=== PATIENT | male | born 1945 | race Caucasian/White ===

== ENCOUNTER 2024-04-05 08:48 | Outpatient (AMB) | payer MEDICARE, OTHER, SELFPAY ==
--- NOTE | 2024-04-05 09:00 | A.SPINEOV_ITS ---
Intake Visit Reasons: lower back pain/spinal stenosis Intake Note: Mr. Henderson is here today c/o low back pain. 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 He saw our article in the [facility] and came in to see us today for 2nd opinion. His story starts about 5 months ago when he was bending forward to get a small item on the floor and felt an acute pain in his back. He was ultimately diagnosed with a L1 compression fracture , underwent a kyphoplasty by at [facility] and subsequently had no improvement in symptoms. Postoperative MRIs showed good position of the cement inside the vertebral body with no changes on flexion or extension. He was sent for facet blocks and around physical therapy. These things did not help at all. He takes Tylenol throughout the day to try to help with the pain. He can not take Motrin because of Welch's esophagus. He has been continuing to have pain in his low back which goes down into his hips in his groin. He does not have any pain tingling or numbness radiating down into his legs. He is frustrated with his quality of life in his inability to continue to walk stand or do activities. He came to see us on his own to see if there is any way we can help him. PMH: History of hypertension, hypothyroidism, high cholesterol, diverticulosis, Welch's esophagus basal cell skin cancer, erectile dysfunction, carpal tunnel syndrome, depression, anxiety, macular degeneration, fracture of the distal radius with ORIF, abnormal stress test Social hx: He does not smoke, drink use any recreational drugs Medications: Colace, metoprolol, Valium, trazodone, pravastatin, Linzess, furosemide, levothyroxine, Protonix, psyllium, gabapentin, lisinopril, lactulose, Viagra, Tylenol, Ocuvite. Allergies: None Physical exam: He is awake alert oriented no acute distress, very slow to stand up because he is in pain, he has tenderness over his lower lumbar region. He has limited strength in his right hip flexor secondary to pain with movement that goes up into his back. ERUM testing also elicits quite a bit of pain. Reflexes are normal. No clonus. Sensation is normal. Imaging review: There is a lumbar MRI from November at [place] showing the L1 compression fracture, other than that there some moderate degenerative disc disease, some heterogenous bone signal throughout the whole lumbar spine. No significant central canal stenosis, no misalignment. Postoperative x-ray shows good placement of the cement in the L1 vertebral body. Impression: 78-year-old male who developed a compression fracture at L1 from a minor flexion movement 6 months ago when he was at his house attempting to get something off the floor, underwent a kyphoplasty without resolution of the back pain. He has been through conservative management postoperatively including Tylenol [id number] medication trials, gabapentin, facet blocks and therapy. Despite this he continues to elena with daily if not almost constant back pain aggravated with activities. He has some limited range of motion of his right hip with positive ERUM testing which I think is probably some type of arthritis in the hip joint itself. Other than that his exam is otherwise normal. His preoperative MRI just show some [id number] arthritis in his lumbar spine outside of the fracture which has already been treated. Postoperative x-rays show good placement of the cement. I do not see any new changes in the x-ray however, obviously this can be limiting because it does not have the sensitivity in the image quality of an MRI. I am going to order a pos toperative MRI just as a precaution to exclude there were not missing something as this is very unusual to see this much back pain continuing after kyphoplasty. Usually they have very high success rates and the affect his almost instantaneous. What is also unusual is the nature in which he fractured his spine. This is not uncommon in females as they are postmenopausal and can often fracture of the back with minor movements, but this is somewhat unusual to see an a male. I wonder if he does not have some kind of metabolic issue. These can also be seen with malignancy. I will call him once the MRI is completed. Thank you for allowing us to care for your patient. The total time spent with this visit with this patient was 45 minutes reviewing history, physical exam, lumbar imaging review, and implementation of treatment plan or further diagnostic testing Saravanan Astorga MD,PhD [facility] Orders: Orders MR lumbar spine wo con Today S32.010A - Wedge compression fracture of first lumbar vertebra, initial encounter for closed fracture Coding Level of Care Code New Pt Level 4 (41435) Diagnoses Lumbar compression fracture S32.000A
== END 2024-04-05 09:53 | disposition home or self-care (01) ==
PROVIDERS: PCP Physician Assistant Medical; Visit Provider Physician Assistant
DX: S32.000A Wedge compression fracture of unspecified lumbar vertebra, initial encounter for closed fracture (principal)
CPT/HCPCS: 99204

== ENCOUNTER → 2024-04-05 08:48 | Outpatient (BNVA) | payer MEDICARE, OTHER, SELFPAY | PROVIDERS: PCP Physician Assistant Medical; Visit Provider Physician Assistant | DX: S32.000A Wedge compression fracture of unspecified lumbar vertebra, initial encounter for closed fracture (principal); X58.XXXA Exposure to other specified factors, initial encounter; Y93.9 Activity, unspecified; Y92.9 Unspecified place or not applicable; Y99.9 Unspecified external cause status | CPT/HCPCS: 99202 ==

== ENCOUNTER → 2024-04-23 07:42 | Outpatient (BNV) | payer MEDICARE, OTHER, SELFPAY | PROVIDERS: PCP Physician Assistant Medical; Visit Provider Radiology Diagnostic Radiology | DX: S32.010A Wedge compression fracture of first lumbar vertebra, initial encounter for closed fracture (principal) | CPT/HCPCS: 72148 ==

== ENCOUNTER 2024-04-23 07:56 | Outpatient (REF) | payer MEDICARE, OTHER, SELFPAY | END 2024-04-23 07:57 | disposition home or self-care (01) | LOC: HO.MRI 07:56 | PROVIDERS: PCP Physician Assistant Medical; Visit Provider Physician Assistant | DX: S32.010A Wedge compression fracture of first lumbar vertebra, initial encounter for closed fracture (principal) | CPT/HCPCS: 72148 ==

== ENCOUNTER 2024-05-13 07:49 | Outpatient (REF) | payer MEDICARE, OTHER, SELFPAY | END 2024-05-13 07:50 | disposition home or self-care (01) | LOC: HO.CT 07:49 | PROVIDERS: PCP Physician Assistant Medical; Visit Provider Physician Assistant | DX: S32.000A Wedge compression fracture of unspecified lumbar vertebra, initial encounter for closed fracture (principal) | CPT/HCPCS: 72131 ==

== ENCOUNTER → 2024-05-13 07:51 | Outpatient (BNV) | payer MEDICARE, OTHER, SELFPAY | PROVIDERS: PCP Physician Assistant Medical; Visit Provider Radiology Diagnostic Radiology | DX: S32.000A Wedge compression fracture of unspecified lumbar vertebra, initial encounter for closed fracture (principal) | CPT/HCPCS: 72131 ==

== ENCOUNTER 2025-05-16 10:26 | Outpatient (AMB) | payer MEDICARE, OTHER, SELFPAY ==
--- NOTE | 2025-05-16 10:31 | A.PHYSOV_ITS ---
Vital Signs 05/16/25 10:36 Height 5 ft 10 in Weight 220 lb BMI 31.6 Intake Visit Reasons: back & neck pain Intake Note: Patient is a 79 year old male here for back and neck pain. 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 He has persistent low back pain, which also involves his leg and knee. He underwent back surgery on Barbara of the previous year. An MRI of his lumbar spine from February 14 showed that prior severe stenosis was resolved, with remaining moderate stenosis. He has tried physical therapy which provided some relief, as well as back injections which did not seem to work. The patient also reports central neck pain, pain in both shoulders, and some numbness in his feet. He denies any arm tingling. For pain management, he takes gabapentin and has some oxycodone for severe pain days. He is unable to take anti-inflammatory medications. His activity is limited; he attempts short walks but experiences pain if he walks too far, and he reports a decreased desire to go out and engage in activities. Patient is requesting MRI of the cervical spine for further treatment options. Pain Description - Location: The patient reports pain in his neck and low back. - Radiation: The back pain radiates to his leg and knee. - Associated Symptoms: He reports pain in both shoulders and numbness in his feet. - Exacerbating Factors: Walking for too long exacerbates his pain. - Interference with Function: The pain has led to a decrease in his overall activity level and a reduced desire to go out. Results - Lumbar Spine MRI (XX): Showed moderate spinal stenosis; resolution of previously noted severe stenosis. - X-ray of lumbar spine (DecemberXX): Mentioned. [facility] Medical History (Updated 05/16/25 @ 16:59 by CARMITA Manzo) Inguinal hernia Macular degeneration Hx of skin cancer, basal cell Diverticulosis of colon (without mention of hemorrhage) Burning tongue syndrome Surgical History History of colonoscopy History of cataract surgery H/O esophagogastroduodenoscopy History of carpal tunnel surgery Family History (Updated 08/29/22 @ 13:24 by Shasta Jameson RN) Mother Thyroid disorder Sister Thyroid disorder Brother High cholesterol Colon polyps Social History Alcohol intake: current Patient Tobacco Use Status: Former Tobacco user Cigarette Packs Per Day: 1 Years Smoked: 3 e-Cigarette/Vaping Use: Never Used Use of substances other than those prescribed or required for medical reasons: Yes Substance Use Type: Marijuana Review of Systems Narrative Review of Systems - Musculoskeletal: Reports neck pain, low back pain, bilateral shoulder pain, and pain in his leg and knee. - Neurological: Reports numbness in his feet. - Denies arm tingling. - General: Reports decreased activity level. Physical Exam Exam Exam: Physical Exam Cervical Spine: Examination of the cervical spine, there is no visible swelling or deformity. He is tender to bilateral upper trapezius. He has limited range of motion of the cervical spine at end range. Special Tests: Axial Compression test: Negative Spurlings test: Negative Lhermitte's sign is Negative Upper Extremities: Full range of motion bilateral upper extremities. Equal automatic transmission mechanic strength bilaterally. Neuro: Sensation: Intact to upper extremities bilateral to light touch Strength C5 (Elbow Flexion): 5/5 on the left and 5/5 on the right. C6 (Elbow Ext): 5/5 on the left and 5/5 on the right. C7 (Elbow Ext): 5/5 on the left and 5/5 on the right. C8 (Finger Flex): 5/5 on the left and 5/5 on the right. T1 (Finger Abd/Add): 5/5 on the left and 5/5 on the right. DTR: C5 (Biceps): Left 2 Right 2 C6 (Brachioradialis): Left 2 Right 2 C7 (Triceps): Left 2 Right 2 Westfall sign: Negative No pathologic clonus. No involuntary movement. Vital Signs: BMI result Body Mass Index 31.6 Assessment & Plan Assessment & Plan (1) Low back pain: Code(s): M54.50 - Low back pain, unspecified Category: Medical Qualifiers: Chronicity: chronic Back pain laterality: midline Sciatica presence: without sciatica Qualified Code(s): M54.50 - Low back pain, unspecified; G89.29 - Other chronic pain (2) Cervicalgia: Code(s): M54.2 - Cervicalgia Category: Medical Plan Pain Management The patient will continue his current pain medication regimen, including gabapentin and oxycodone for severe pain. Use of Tylenol was recommended, and the patient was advised against using anti-inflammatory medications. He was counseled to perform short, frequent walks instead of longer walks to manage pain during exercise. The patient was reassured to call if he requires assistance with pain medication. Plan Patient was informed and verbally consented to the use of an ambient scribe for clinic note documentation during this visit. 1. Neck Pain The patient's neck pain is suspected to be due to arthritis. An MRI of the cervical spine will be ordered to better visualize the underlying structures before considering further interventions. The patient will have the MRI performed at [facility]. Based on the MRI results, targeted injections for arthritis may be considered. Follow-up will occur after the MRI to discuss the results. 2. 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 The severe stenosis component was addressed with a prior surgery. It was explained that there are not many interventions for moderate stenosis, and prior back injections were ineffective. Management will focus on conservative measures, including pain medication and activity modification. Discussion Notes I discussed the patient's ongoing neck and low back pain. I explained that his r ecent lumbar MRI showed that his prior surgery had resolved the severe stenosis, leaving him with moderate stenosis for which there are limited treatment options. Regarding his neck pain, I conveyed my suspicion that it stems from arthritis and recommended a cervical spine MRI to get a definitive diagnosis before considering treatments like facet injections. The patient agreed to the MRI, which will be scheduled at [facility] for his comfort. We reviewed his pain regimen, including Tylenol, gabapentin, and the appropriate use of his breakthrough pain medication, noting he cannot take anti-inflammatories. I encouraged him to engage in short walks for exercise and to call should his pain become unmanageable. We will follow up by phone or in person to review the MRI results. Patient Instructions - We are ordering an MRI of your neck. - Our office will call you in the next couple of days to schedule it. - You should complete the MRI before we decide on other treatments, like injections. - For pain, you can use Tylenol and your prescribed gabapentin. - Only use your other strong pain medicine (oxycodone) on days when the pain is very bad. - Do not take anti-inflammatory medicines like ibuprofen or naproxen. - For exercise, try taking short walks instead of long ones to avoid making the pain worse. - We will call you to discuss the results of your MRI, or you can make an appointment to come back in. Orders: Orders MR cervical spine wo con Today M54.12 - Radiculopathy, cervical region Coding Level of Care Code Tele Est Pt Level 3 (00959) Diagnoses Chronic midline low back pain without sciatica M54.50; G89.29 Chronicity: chronic Back pain laterality: midline Sciatica presence: without sciatica Cervicalgia M54.2
[2025-05-16 10:36] VITALS: BMI 31.6
--- OUTSIDE RECORDS SUMMARY | 2025-05-16 17:24 | XMS_ITS ---
[facility] Name [facility] Organization Unknown Care Team Organization Name Specialty Phone Email Start Date End [facility] ZAFAR LUTZ Primary Care 04/16/2022 024
== END 2025-05-16 11:11 | disposition home or self-care (01) ==
LOC: HO.HPHYS 10:26
PROVIDERS: PCP Physician Assistant Medical; Visit Provider Physician Assistant
DX: M54.50 Low back pain, unspecified (principal); G89.29 Other chronic pain; M54.2 Cervicalgia
CPT/HCPCS: 99213

== ENCOUNTER → 2025-05-16 10:26 | Outpatient (BNVA) | payer MEDICARE, OTHER, SELFPAY | PROVIDERS: PCP Physician Assistant Medical; Visit Provider Physician Assistant | DX: M54.2 Cervicalgia (principal); M54.50 Low back pain, unspecified; G89.29 Other chronic pain | CPT/HCPCS: 99212 ==

== ENCOUNTER 2025-05-27 09:39 | Outpatient (AMB) | payer MEDICARE, OTHER, SELFPAY ==
--- NOTE | 2025-05-27 09:55 | A.PHYSOV_ITS ---
Vital Signs 05/27/25 09:56 Height 5 ft 10 in Weight 220 lb BMI 31.6 Intake Visit Reasons: MRI followup Intake Note: Patient is a 79 year old male here for MRI review. 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 He reports that his neck pain is his biggest problem at present. Imaging reveals severe foraminal narrowing at C4-5 and C5-6 bilaterally, causing nerve pinching. The patient also has a history of chronic back pain and underwent a decompression surgery with Dr. Astorga in the past. An MRI of his back showed compression of the L4 nerve roots, which is consistent with his symptoms of thigh pain. He has previously tried injections for his back, which were not effective, and he continues to have pain despite the surgery. The patient also reports feeling sore all over. He had some chest pain and significant gas the previous night, but these symptoms have since resolved. He reports pain level today of 7/10. Pain Description - Location: The patient reports his primary pain is in the neck, predominantly on the left side, though it is present bilaterally. - Severity: He rates his current neck pain as 6 out of 10, noting it was more severe during the previous night. - Radiation: The neck pain does not radiate significantly into his arm. - Associated symptoms: The patient experiences generalized body soreness. - Other pain: He also reports back pain, thigh pain, and knee issues. Results - Imaging: - Cervical Spine: Severe narrowing where the nerves come out at C4-5 and C5-6 bilaterally. - Lumbar Spine MRI: Reports some compression of L4 nerve roots; no major compression of the spinal cord is noted. [facility] Medical History (Updated 05/16/25 @ 16:59 by CARMITA Manzo) Inguinal hernia Macular degeneration Hx of skin cancer, basal cell Diverticulosis of colon (without mention of hemorrhage) Burning tongue syndrome Surgical History History of colonoscopy History of cataract surgery H/O esophagogastroduodenoscopy History of carpal tunnel surgery Family History (Updated 08/29/22 @ 13:24 by Shasta Jameson RN) Mother Thyroid disorder Sister Thyroid disorder Brother High cholesterol Colon polyps Social History Alcohol intake: current Patient Tobacco Use Status: Former Tobacco user Cigarette Packs Per Day: 1 Years Smoked: 3 e-Cigarette/Vaping Use: Never Used Substance Use Type: Marijuana Review of Systems Narrative Review of Systems - Musculoskeletal: Reports neck pain, primarily on the left, generalized soreness, back pain, thigh pain, and knee issues. - Cardiovascular: Denies current chest pain, but reports an episode of chest pain on the previous night. - Gastrointestinal: Reports having had really bad gas on the previous night, which is now resolved. - Neurological: Denies significant radiation of neck pain into the arm. Physical Exam Exam Exam: Physical Exam Cervical Spine: Examination of his cervical spine, there is no visible swelling or deformity. He is tender to left upper trapezius. He has limited range of motion of the cervical spine at end range. Special Tests: Axial Compression test: Negative Spurlings test: Negative Lhermitte's sign is Negative Upper Extremities: Full range of motion bilateral upper extremities. 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 Neuro: Sensation: Intact to upper extremities bilateral to light touch Strength C5 (Elbow Flexion): 5/5 on the left and 5/5 on the right. C6 (Elbow Ext): 5/5 on the left and 5/5 on the right. C7 (Elbow Ext): 5/5 on the left and 5/5 on the right. C8 (Finger Flex): 5/5 on the left and 5/5 on the right. T1 (Finger Abd/Add): 5/5 on the left and 5/5 on the right. DTR: C5 (Biceps): Left 2 Right 2 C6 (Brachioradialis): Left 1 Right 1 C7 (Triceps): Left 2 Right 2 Westfall sign: Negative No pathologic clonus. No involuntary movement. Lumbar Spine: He is tender to lower lumbar facets. He is otherwise nontender. Full range of motion was lumbar spine. He does have an increase in pain with facet loading. Special Tests: Lhermittes sign was negative Heel Toe walk is normal Left straight leg raise: Negative Right straight leg raise: Negative Special tests Richard test is negative Ganslen's test is negative SI Joint compression test negative Aliza test negative Piriformis stretch is negative Lower Extremities: Full range of motion bilateral lower extremities. No calf pain or edema. Neuro: Sensation: Intact to lower extremities bilaterally Strength L2 (Psoas): 5/5 on the left and 5/5 on the right. L3 (Quads): 5/5 on the left and 5/5 on the right. L4 (Ant tibialis): 5/5 on the left and 5/5 on the right. L5 (EHL) 5/5 on the left and 5/5 on the right. S1 (Gastroc): 5/5 on the left and 5/5 on the right. DTR L4: (Patellar) Left 1 Right 1 S1: (Achilles) Left 1 Right 1 Babinski Downgoing No pathologic clonus. No involuntary movement. Vital Signs: BMI result Body Mass Index 31.6 Assessment & Plan Assessment & Plan (1) Low back pain: Code(s): M54.50 - Low back pain, unspecified Category: Medical Qualifiers: Chronicity: chronic Back pain laterality: midline Sciatica presence: without sciatica Qualified Code(s): M54.50 - Low back pain, unspecified; G89.29 - Other chronic pain (2) Cervicalgia: Code(s): M54.2 - Cervicalgia Category: Medical Plan Pain Management - Analgesia: Current neck pain is 6/10. - Affect: The patient expresses frustration, stating, My whole body's falling apart. - Activities of Daily Living: The patient reports the neck pain was killing me last night, implying a significant impact on function. Plan Patient was informed and verbally consented to the use of an ambient scribe for clinic note documentation during this visit. 1. Cervical Foraminal Stenosis With Neck Pain The patient's primary complaint is neck pain, currently rated at 6/10, which he identifies as his biggest problem. His symptoms are consistent with imaging findings of severe bilateral foraminal stenosis at C4-5 and C5-6. The plan is to proceed with a cervical epidural steroid injection. I recommend C6-7 JANNET as he has failed conservative treatment. The procedure will be performed by Dr. Zhang at the hospital, utilizing a single midline injection to allow the medication to spread and address inflammation on both sides. The patient is not on blood thinners. The office will obtain insurance authorization and contact the patient to schedule the procedure. 2. Chronic Low Back Pain With Lumbar Nerve Root Compression The patient has a history of chronic low back pain with radicular symptoms to the thigh, and is post-lumbar decompression surgery. He has failed prior treatments, including back injections and surgery, with persistent pain. While his lumbar MRI shows some compression of the L4 nerve roots, no major spinal cord compression is evident. No further interventions are planned for his back at this time, and further surgery is not recommended. Discussion Notes I explained to the patient that his neck pain is caused by severe narrowing where nerves exit the spine at C4-5 and C5-6 on both sides. We discussed treatment options, and I recommended a cervical epidural steroid injection, to which he agreed. I informed him that Dr. Jane would perform the procedure at the hospital because neck injections are riskier than back injections. I explained that a single shot in the middle of the neck would allow the medication to spread and help both sides. We also reviewed his back pain, noting that injections and surgery have not been successful, and I advised against pursuing more surgery. I will place the order for the cervical injection, and my office will obtain authorization and contact him for scheduling. Patient Instructions - We are ordering an injection for your neck to help with your pain. - This procedure will be done at the hospital. - Our office will get approval from your insurance and will then call you to schedule the appointment. - We will not be doing any more procedures for your back at this time. - It is not recommended that you have any more back surgery. Orders: Referrals Physiatry Procedure Notification G89.29 - Other chronic pain, M54.2 - Cervicalgia, M54.50 - Low back pain, unspecified Coding Level of Care Code Est Pt Level 3 (54900) Diagnoses Chronic midline low back pain without sciatica M54.50; G89.29 Chronicity: chronic Back pain laterality: midline Sciatica presence: without sciatica Cervicalgia M54.2
[2025-05-27 09:56] VITALS: BMI 31.6
--- OUTSIDE RECORDS SUMMARY | 2025-05-27 10:26 | XMS_ITS | Clinical Summary ---
Author Organization 175 [facility] Address [address] [place] [address] Phone Care Team Providers Care Svp Digital [employer] Name Role Phone Saravanan Perdue Primary Care Provider [phone] Allergies No known active allergies Medications acetaminophen (TYLENOL) 500 mg tablet Take 500 mg by mouth every 6 hours as needed Active docusate sodium (COLACE) 100 mg capsule Take 1 Capsule by mouth 3 times daily as needed for Constipation. 03/30/20 24 Active furosemide (LASIX) 20 mg tablet Take 1 tablet (20 mg total) by mouth 1 (one) time each day. 01/14/20 24 Active sildenafiL (VIAGRA) 100 mg tablet TAKE ONE TABLET BY MOUTH AT LEAST 1 HOUR PRIOR TO INTENDED ACTIVITY. 12/13/19 23 Active psyllium seed (PSYLLIUM ORAL) Psyllium 0.36 g Cap Take 1 Capsule by mouth 2 times daily. 12/25/19 24 Active vit C/vit E/lutein/min/om ega-3 (OCUVITE ORAL) OCUVITE PRESERVISION OR TABS 2 tab BID Active oxyCODONE (OXY-IR) 5 mg immediate release capsuleIndicati ons:Lumbar stenosis with neurogenic claudication Take 1-2 capsules (5-10 mg total) by mouth every 8 (eight) hours if needed for severe pain. Max Daily Amount: 30 mg 40 capsule 06/22/19 25 Active gabapentin (NEURONTIN) 300 mg capsule Take 1 capsule (300 mg total) by mouth 2 (two) times a day. 180 capsule 3 07/20/19 25 Active lidocaine (XYLOCAINE) 2 % solution Take 0.5 mL by mouth 3 (three) times a day if needed for mild pain. Take 0.5 mL by mouth every 3 hours as needed (tongue irritation). 100 mL 3 07/20/19 25 Active metoprolol succinate (TOPROL-XL) 50 mg 24 hr tabletIndicatio ns:Thoracic aortic ectasia (CMS/HCC V24) TAKE 1 TABLET BY MOUTH EVERY DAY 90 tablet 1 08/10/19 25 Active famotidine (PEPCID) 20 mg tablet TAKE 1 TABLET BY MOUTH EVERYDAY AT BEDTIME 90 tablet 3 09/28/19 25 Active metoprolol succinate (TOPROL-XL) 25 mg 24 hr tablet TAKE 1 TABLET BY MOUTH EVERY DAY 90 tablet 3 10/07/19 25 Active Additional Information Patient not taking.Reported on 04/05/2025 lisinopril (PRINIVIL,ZESTR IL) 40 mg tablet TAKE 1 TABLET BY MOUTH EVERY DAY 90 tablet 1 11/16/19 25 Active levothyroxine (SYNTHROID, LEVOTHROID) 125 mcg tablet Take 2 tablets (250 mcg total) by mouth 1 (one) time each day before breakfast. 180 each 3 11/19/19 25 Active pantoprazole (PROTONIX) 40 mg EC tablet Take 1 tablet (40 mg total) by mouth 2 (two) times a day. Do not crush, chew, or split. 60 each 01/25/20 25 Active traZODone (DESYREL) 100 mg tablet TAKE 1 TABLET BY MOUTH EVERYDAY AT BEDTIME 90 tablet 1 02/24/20 25 Active linaCLOtide (Linzess) 72 mcg capsule Take 1 capsule (72 mcg total) by mouth 1 (one) time each day before breakfast. 30 capsule 3 04/05/20 25 Active cyclobenzaprine (FLEXERIL) 10 mg tabletIndicatio ns:Chronic constipation,Ba rrett's esophagus without dysplasia,Gastr oesophageal reflux disease, unspecified whether esophagitis present,Lower abdominal pain Take 1 tablet (10 mg total) by mouth at bedtime. 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 1800 mL 1 04/05/202024 Discontinued Active Problems Problem Noted Date Diagnosed Date Neck pain 12/14/2024 Assessment & Plan (12/14/2024 10:51 AM EDT): Mr. Linares is doubting neck stiffness and I think this is from the degenerative disc changes seen on x-ray. His alignment is maintained and he has no radicular symptoms so at this point, I do not think we need to pursue further imaging or consider surgery. I would like for him to start a neck strengthening program which he can do at the [facility] with his to maintain his posture and alignment. Osteopenia 07/20/2024 Schmorl's nodes of lumbar region 05/27/2024 Assessment & Plan (05/27/2024 5:01 PM EST): Patient is s/p L1 kyphoplasty 11/20/2023 - Path: Consistent with fracture, no malignancy noted, he was doing well postop and improved but still some persistent back pain. In February he saw Dr. Ro for back and right hip pain, she recommended aquatic PT or ground PT, he started doing exercises in the pool at the gym about 2-3 times a week through February. He had 3 level facet injections bilaterally but did not see an improvement. He has been trying to stay active but has pain in the bilateral hips and anterior thighs worse with walking and standing. He has some pain that radiates across the low back into the buttocks, pain in his heels bilaterally x 3-4 weeks. He notes difficulty trying to get in and out of the car at times with lifting the leg. He went for a second opinion at [facility], he had MRI lumbar spine ordered, was referred back to Dr. Ro for question of L3, L4 compression fractures and possibly kyphoplasty. Patient had MRI lumbar spine 04/23/2024 at [facility] (also CT lumbar spine April 2024 at [facility] that shows Schmorl's nodes at L3 and L4 with disc material mid superior endplate into the body, we compared with [facility], he does not appear to have acute compression fractures that would require kyphoplasty. Also of note, he has L3-4 >L4-5 central stenosis, in particular lateral recess stenosis. Imaging has not been read yet, no official report. I reviewed MRI images in detail with the patient and his . I also reviewed MRI with Dr. Ro. I reviewed his latest images with his CT abdomen pelvis from November 2023, he did not have the Schmorl's nodes L3, L4 at that time. Mr. Linares has bilateral hip pain that radiates to the anterior thighs, decreased range of motion in the hips. When he saw Dr. Ro in February his main complaint was right hip pain, trouble raising it to cross his right knee over the left and when walking. I will check bilateral hip x-rays, he likely will need referral to orthopedics to check his hips. I will review official MRI report when available, it has been taking a long time for imaging to get read at [facility], sometimes months, I will keep checking in. Dr. Ro is not recommending kyphoplasty at L3 and L4, however she can offer patient L3-4 decompression to see if it helps with some of his bilateral back, hip and anterior thigh pain, worse with walking and standing. We discussed the surgery, risks and benefits in detail, including but not limited to need for general anesthesia, risk for damage to the nerve roots causing weakness or numbness in the leg, spinal fluid leak, hematoma, infection, no improvement in symptoms postop. Patient will think things over and call if he would like to proceed with L3-4 decompression. All questions answered. 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 Linares is here for his second postop visit since an L1 balloon kyphoplasty with biopsy on 11/20/2023 she has had complete relief of the pain in that area. He feels great and has had no swelling. Unfortunately, he is still limited by profound lower back pain affecting his activity tolerance. He was recently seen by [facility] and has an appointment on January 08 for lumbar facet injections. On exam, the incisions are well-healed there is no swelling or erythema. Strength is full, he rises from the chair without assistance, gait is steady. Mr. Linares has done well since his kyphoplasty and will continue with pain management though I did advise limiting the number of cortisone injections given osteopenia on bone density and the fact that I would consider the him as having osteoporosis after this compression fracture. Abnormal stress test 10/23/2023 Overview (04/22/2024): Last Assessment & Plan: Lower stress test with small fixed perfusion defect. He does have exertional dyspnea. Will start metoprolol and reassess at his next office visit. I recommended continued medical management. Blood pressure has been reasonably controlled historically. I recommended he increase his pravastatin from 20 to 80 mg a day. He is intolerant of aspirin therapy. We discussed the signs or symptoms of coronary insufficiency and he will alert us if they occur. EVANS (dyspnea on exertion) 10/23/2023 Spinal stenosis of lumbar re gion with neurogenic claudication 04/22/2023 Overview (04/22/2024): Last Assessment & Plan: Mr. Linares underwent 3 level facet injections bilaterally but feels that there was no improvement. He describes soreness in the lower back and hips especially limited with walking. His main focus is at the right hip and he has trouble raising it to cross his right knee over the left and when walking. On exam, he has an exaggerated thoracic kyphosis. He is nontender in the midline along the spine to palpation and demonstrates the soreness in the paramedian area bilaterally. He is mildly tender at the right SI joint. There is decreased range of right hip flexion with strength at 4 to 4+ out of 5. Lumbar spine x-rays obtained for this persistent low back pain on 11/26/2023 did not show a new compression fracture. AP and lateral views of the hips did not show fracture, dislocation or bone spurs. I believe Mr. Linares is deconditioned and would benefit from guided activity. He describes being in too much pain for physical therapy though he asked about PT. I think he would do well in a pool as a transition where there is no weight on his facets and hips and he can walk and do exercises in the water that he cannot comfortably do on land. We can always give him a referral to physical therapy if he makes progress. If not or if the right hip pain worsens, we can refer to orthopedics. Assessment & Plan (12/14/2024 10:44 AM EDT): Naomi Linares recovered from his decompression procedure and does feel that the PT helped though he is still limited with his walking tolerance. He is able to walk better according to him and his so I think he should just maximize what he is able to do. He will continue his PT at home and walking every day. His main concern is that he wakes up feeling as if all of his joints hurt including his hips and knees. Unfortunately he cannot take anti-inflammatory medication because of his history of Welch's esophagus. He does take gabapentin usually 1/day but sometimes 2 and finds that it helps. I suggested that he start taking 2 gabapentin at night and see how he feels in the morning. He should hold the diazepam at night while doing this. If the increased dose of gabapentin really makes a difference for how he has in the morning and during the day, he can increase to 3 tabs per day either distributed throughout the day or all at night. Again, if taking them all at night, he should not also take both the Valium and trazodone. Assessment & Plan (06/22/2024 10:50 AM EST): Mr. Linares is 2 weeks s/p L3-4 decompression. He does feel his legs are working a little bit better, he now can straighten the right leg out and lifted with less difficulty. He still has not been walking much. He has mostly been sitting for the past 7 or 8 months, has been inactive, likely has some deconditioning, subjectively feels his legs are still somewhat weak. He describes some left low back pain. In the past we checked hip x-rays, he had mild arthritis bilaterally. He also was given lumbar brace for L3, L4 Schmorl's nodes, has been using it for about an hour a day, may be helping a little. He is also s/p L1 kyphoplasty 11/20/2023. He has been using oxycodone 1-2 tabs a day, some constipation issues, has been using Metamucil, in the past senna. He cannot take NSAIDs, does not feel Tylenol does much for him. Mr. Linares overall is doing well, he seems to be having less pain overall in the buttocks and legs, legs are working a bit better. He has some deconditioning, we talked about trying physical therapy, I sent him to one of the locations that has the [employer] treadmill, see if we can get him walking farther distances, doing some core strengthening, sitting less at home, doing some gentle stretching regularly. We talked about trying a statin vacation x 2 weeks to see if that helps some of his left low back pain. Overall he seems to be doing well, is going to take time to increase his stamina and strength. He can follow-up with Dr. Ro in 6 weeks. All questions answered, refill for oxycodone sent to his pharmacy. Dilatation of thoracic aorta 09/27/2022 Overview (04/22/2024): Last Assessment & Plan: Ascending aorta measuring 4.4 cm in 2023. Will plan to repeat the study in around 1 year. Assessment & Plan (04/04/2025 10:10 AM EDT): Stable dilatation of the ascending aorta based on last 2 echocardiograms. Will plan to repeat echocardiogram in around 1 year. Blood pressure goal less than 130/80 Burning tongue syndrome 12/26/2020 Generalized anxiety disorder 02/06/2018 Major depressive disorder, recurrent, moderate 0 02/06/2018 Irritable bowel syndrome with diarrhea 8 Erectile dysfunction 04/13/2013 Right carpal tunnel syndrome 04/12/2010 Closed fracture of distal end of radius 01/10/20 10 Overview (04/22/2024): IMO update Diverticulitis of colon without hemorrhage 09/01 Overview (04/22/2024): Incidental finding at colonoscopy 09/01/2006. Essential hypertension, benign 05/16/2005 Assessment & Plan (04/04/2025 10:10 AM EDT): Blood pressure is at goal on current medications. He was concerned that his blood pressure was too low however I reassured him that unless he has dizziness associated with low blood pressure, it is perfectly acceptable where it is. Hyperlipidemia 05/16/2005 Hypothyroidism 05/16/2005 Macular degeneration 05/16/2005 Overview (04/22/2024): IMO update Malignant neoplasm of scalp and skin of neck 01/2005 Overview (04/22/2024): IMO update Skin cancer, basal cell 05/16/2005 Overview (05/04/2024): basal cell skin cancer IMO update Encounters Date Type Department Care Team Description 05/19/2025 7:37 AM EST - 05/19/2025 11:59 PM EST Hospital Encounter [facility] MRI [address] [place] [address] Radiculopathy, cervical region Discharge Disposition: Home or Self Care 04/05/2025 11:10 AM EDT Office Visit Gastroenterology - [place] [facility] [address] [place] [address] Joan Juárez PA Chronic constipation (Primary Dx); Welch's esophagus without dysplasia; Gastroesophageal reflux disease, unspecified whether esophagitis present; Lower abdominal pain 04/04/2025 9:30 AM EDT Office Visit [facility] [address] [place] [address] Philip Guerrero MD Essential hypertension, benign (Primary Dx); Thoracic aortic ectasia ([facility] V24); Dilatation of thoracic aorta ([facility] V24) from Last 3 Months Immunizations Immunization Administration Dates Next Due H1N1 Inj Preservative Free 06/21/2009 Influenza trivalent, 0.5mL ( Fluad) 65yo and older 02/28/2023,03/12/2022,02/28/2021,03/01,03/22/2019,03/01/2018,03/30/2017 Influenza trivalent, 0.5mL, preservative free (Fluarix; FluLaval; Fluzone) ages 6mo and older (Afluria) 3 years and older 04/05/2008,04/18/2007,04/12/2005 Influenza trivalent, with pr eservative (Fluzone; Afluria) 6mo and older 03/31/2016,03/01/2015,03/23/2014,03/05,03/15/2012,03/19/2011,03/28/2010 ,03/16/2009,05/18/2006 Influenza, Unspecified 03/06/2020,03/03/2020, Pfizer Covid-19 Bivalent, Or iginal + Ba.1 (Non-US Trademark [employer] Bivalent) 02/15/2022 Pneumococcal conjugate 13 va lent (Prevnar 13, PCV13) 2mo and older 05/24/2015 Pneumococcal polysaccharide 23 valent (Pneumovax 23) 2yo and older 04/26/2014,03/16/2009 TD, Adsorbed, Preservative Free 05/11/2002 Tdap Tetanus diptheria acell ular pertussis (Boostrix; Adacel) 7yo and older 09/21/2021,08/12/2011 Zoster Live 11/27/2009 Zoster recombinant (Shingrix ) 19yo and older 04/25/2020,03/03/2020,02/16/2020 Surgical History Surgery Date Site/Laterality Comments COLONOSCOPY 01/03/2003 normal ESOPHAGOGASTRODUODENOSCOPY 09/01/2006 : normal; bx negative COLONOSCOPY W/ BIOPSIES 09/01/2006 tics; bx negative CARPAL TUNNEL RELEASE 2009 PROCEDURE: [place] NEUROPLASTY &/TRANSPOS MEDIAN NRV CARPAL TUNNE; COMMENT: wrist fx orif HERNIA REPAIR 2016 Left INGUINAL HERNIA CATARACT EXTRACTION bilat dr landrum COLONOSCOPY 10/2016 negative COLONOSCOPY 04/10/2023 hector hemorrhoids no repeat OTHER SURGICAL HISTORY 07/23/2023 ENDOSCOPY; [facility]ctor small HH SPINAL CORD DECOMPRESSION BACK SURGERY 06/08/2024 L3-4 decompression, Dr. Ro BACK SURGERY 11/20/2023 s/p L1 kyphoplasty, Dr. Ro Medical History Medical History Date Comments Other and unspecified hyperlipidemia 05/16/2005 Historical Medical DX 05/16/2005 Other and unspecified malignant neoplasm of scalp and skin of neck Macular degeneration (senile ) of retina, unspecified 05/16/2005 Special screening for malign ant neoplasms, colon 07/09/2006 : Negative colonoscopy 2002, no colon cancer screening needed for 10 years. Esophageal reflux 07/23/2006 Diverticulosis of colon (wit hout mention of hemorrhage) 09/01/2006 Incidental finding at colono scopy 09/01/2006. Erectile dysfunction 04/13/2013 Low back pain Hypertension Dysphagia Blindness MACULAR DEGENGER ATION Hypothyroidism Irritable bowel syndrome Hiatal hernia Anxiety Neuromuscular disorder (CMS/ HCC V24, CMS/HCC V28) NEUREOPATHY Arthritis Joint pain Spinal stenosis THORACIC Kyphosis of thoracic region, unspecified kyphosis type Osteopenia Family History Medical History Relation Name Comments Thyroid disease Mother Relation Name Status Comments Brother 1 Alive CHOLESTEROL Brother 2 Alive HTN; colon poly ps Father (Age 62) [place] Mother breast cancer Sister 1 Alive THYROID Sister 2 Alive Social History Tobacco Use Types Packs/Day Years Used Date Smoking Tobacco: Former Cigarettes 1 12 1 08/06/1961 - 06/09/1974 Smokeless Tobacco: Never Tobacco Cessation:Counseling Given: Not Answered Alcohol Use Standard Drinks/Week Comments Yes 0 (1 standard drink = 0.6 oz pur e alcohol) 1-2 WINE NIGHTLY Interpersonal Safety Answer Date Record ed Physical Abuse Unrecognized value 06/08/2024 Verbal Abuse Unrecognized value 06/08/2024 Sex and Gender Information Value Date Recorded Sex Assigned at Male 05/31/2024 10:40 AM EST Legal Sex Male 6:34 PM EST Gender Identity Male 05/31/2024 10:40 AM EST Sexual Orientation Straight 05/31/2024 10 :40 AM EST Last Filed Vital Signs Vital Sign Reading Time Taken Comments Blood Pressure 122/60 04/05/2025 11:18 AM EDT Pulse 47 04/05/2025 11:18 AM EDT Temperature 36.4 C (97.6 F) 01/24/2025 8:11 AM EDT Respiratory Rate 14 01/24/2025 8:11 AM EDT Oxygen Saturation 98% 04/05/2025 11:18 AM EDT Inhaled Oxygen Concentration - - Weight 103 kg (226 lb 6.4 oz) 04/05/2025 11:18 A M EDT Height 177.8 cm (5' 10 ) 04/05/2025 11:18 AM EDT Body Mass Index 32.49 04/05/2025 11:18 AM EDT Plan of Treatment Upcoming Encounters Date Type Department Care Team (Late st Contact Info) Description 07/29/2025 8:00 AM EST Office Visit Adult Medicine [address] [phone] Saravanan Perdue PA [address] [place] [phone] 11/16/2025 8:30 AM EDT Office Visit Gastroenterology - [address] [phone] Joan Juárez PA [address] [facility] [address] [place] [address] 03/20/2026 12:30 PM EDT Ancillary Procedure [facility] - [facility] [address] [facility] [address] [place] [phone] Health Maintenance Due Date Last Done Comments Drug Screen 1945 Non-Opioid Controlled Substance Agreement 1945 Medicare Annual Wellness Visit 05/18/2022 Social Influencers of Health Screening 05/18/2022 RSV Immunization Adult Patients (1 - 1-dose 75+ series) 2022 Falls Risk Assessment 07/20/2025 07/20/2024 COVID-19 Vaccine (8 - Pfizer risk season) 2025 03/11/2025, 03/30/2024, 02/28/2023, Additional history exists Hypertension/CHF/CAD Annual BMP Blood Test 11/17/2025 11/17/2024, 01/14/2024, 01/14/2024 Cholesterol Screening (Lipid Panel) 11/17/2029 11/17/2024, 01/14/2024, 01/14/2024 DTaP,Tdap,and Td Vaccines (3 - Td or Tdap) 09/22/2031 09/21/2021, 08/12/2011, 05/11/2002 Hepatitis C Screening Completed 04/05/2013 Pneumococcal Vaccine: 50+ Years Completed 05/24/2015, 04/26/2014, 03/16/2009 Zoster Vaccines Completed 04/25/2020, 02/08, 02/16/2020, Additional history exists Depression Screening Completed 07/20/2024, 07/16/19 24 Influenza Vaccine Completed 03/11/2025, , 03/12/2022, Additional history exists HIB Vaccines Aged Out No longer eligi ble based on patient's age to complete this topic HPV Vaccines Aged Out No longer eligi ble based on patient's age to complete this topic Hepatitis A Vaccines Aged Out No long er eligible based on patient's age to complete this topic Hepatitis B Vaccines Aged Out No long er eligible based on patient's age to complete this topic IPV Vaccines Aged Out No longer eligi ble based on patient's age to complete this topic MMR Vaccines Aged Out No longer eligi ble based on patient's age to complete this topic Meningococcal ACWY Vaccine Aged Out N o longer eligible based on patient's age to complete this topic Meningococcal B Vaccine Aged Out No l onger eligible based on patient's age to complete this topic RSV Immunization Patients Under 20 months Aged Out No longer eligible based on patient's age to complete this topic Varicella Vaccines Aged Out No longer eligible based on patient's age to complete this topic Medical Devices Implanted Type Area Law Researcher Device Identifier Shelf Expiration Date Model / Serial / Lot Powder Surgifoam Absorb Gel - Sna - [id number] Implanted:Qty: 1 on 06/08/2024 by Laurie Ro MD at [facility] [employer] N/A: Spine Lumbar [employer] 12/11/2025 1978 / NA / [id number] Procedures Procedure Name Priority Date/Time Associated Diagnosis Comments MR CERVICAL SPINE WO CONTRAST Routine 05/19/2025 8:50 AM EST Radiculopathy, cervical region ECG 12-LEAD Routine 04/04/2025 9:25 AM EDT Essential hypertension, benign COMPREHENSIVE METABOLIC PANEL Routine 11/17/2024 11:17 AM EDT Osteopenia, unspecified location Welch's esophagus without dysplasia Dilatation of thoracic aorta (CMS/HCC V24) Essential hypertension, benign Generalized anxiety disorder Other hyperlipidemia Hypothyroidism, unspecified type Major depressive disorder, recurrent, moderate (CMS/HCC V24, CMS/HCC V28) LIPID PANEL WITH REFLEX TO DIRECT LDL Routine 11/17/2024 11:17 AM EDT Osteopenia, unspecified location Welch's esophagus without dysplasia Dilatation of thoracic aorta (CMS/HCC V24) Essential hypertension, benign Generalized anxiety disorder Other hyperlipidemia Hypothyroidism, unspecified type Major depressive disorder, recurrent, moderate (CMS/HCC V24, CMS/HCC V28) DEPRESSION SCREENING Routine 07/16/2023 HEPATITIS C SCREENING Routine 04/05/2013 from Last 3 Months or Most Recently Relevant to Health Maintenance Results * MR Cervical Spine wo Contrast (05/19/2025 8:50 AM EST) Anatomical Region Laterality Modality C-spine, Spine Magnetic Resonan ce 05/25/2025 12:3 7 PM EST Impressions 05/25/2025 12:57 PM EST Multilevel degenerative changes. There are moderate spinal stenoses at C3-4, C4-5, C5-6, and multilevel high- grade foraminal stenoses. -------- FINAL REPORT -------- Dictated By: Reji Arizmendi Dictated Date: 05/25/2025 12:37 ET Assigned Physician: Reji Arizmendi Reviewed and Electronically Signed By: Reji Arizmendi Signed Date: 05/25/2025 12:57 ET Workstation ID: [id number] Transcribed By: Self Edit Transcribed Date: 05/25/2025 12:37 ET Narrative 05/25/2025 12:57 PM EST PROCEDURE: MRI of the cervical spine without intravenous contrast. TECHNIQUE: Sagittal and axial multisequence MRI of the cervical spine without intravenous contrast administration. HISTORY: Radiculopathy cervical region COMPARISON: Radiographs dated 12/09/2024. FINDINGS: Visualized portions of the brain and skull base are normal. No suspicious marrow infiltrative lesion. Multifocal Modic endplate changes. Paraspinous soft tissues are normal. The cord is normal in signal and caliber. Cervical disc levels: C2-3: Minimal endplate irregularity. Mild right facet arthropathy. No significant spinal or foraminal stenosis. C3-4: Minimal anterior endplate osteophytes and minimal endplate irregularity. Small left uncovertebral spurs and a small disc osteophyte complex eccentric to the left. Moderate left facet arthropathy with mild facet joint widening suggesting hypermobility. Mild right facet arthropathy. Mild posterior ligamentous hypertrophy. Moderate spinal stenosis. Mild left and moderate right foraminal stenosis. C4-5: Small anterior endplate osteophytes. Moderate disc space height loss and endplate irregularity. Small left larger than right uncovertebral spurs and a small symmetric disc osteophyte complex. Minimal bilateral facet arthropathy. Moderate spinal stenosis. Moderate-severe bilateral foraminal stenosis. C5-6: Mild disc space height loss and moderate endplate irregularity. Small anterior endplate osteophytes. Small left and moderate right uncovertebral spurs with a small symmetric disc osteophyte complex. Moderate spinal stenosis. Severe left and moderate-severe right foraminal stenosis. C6-7: Moderate disc space height loss and endplate irregularity with small anterior endplate osteophytes. Minimal symmetric disc osteophyte complex. No significant spinal or foraminal stenosis. C7-T1: Mild disc space height loss and moderate endplate irregularity. Small bilateral uncovertebral spurs and a very small symmetric disc osteophyte complex. Mild right and minimal left facet arthropathy. No spinal stenosis. Mild-moderate bilateral foraminal stenosis. Procedure Note Reji Arizmendi MD - 05/25/2025 PROCEDURE: MRI of the cervical spine without intravenous contrast. TECHNIQUE: Sagittal and axial multisequence MRI of the cervical spinewithout intravenous contrast administration. HISTORY: Radiculopathy cervical region COMPARISON: Radiographs dated 12/09/2024. FINDINGS: Visualized portions of the brain and skull base are normal. No suspicious marrow infiltrative lesion. Multifocal Modic endplatechanges. Paraspinous soft tissues are normal. The cord is normal in signal and caliber. Cervical disc levels: C2-3: Minimal endplate irregularity. Mild right facet arthropathy. Nosignificant spinal or foraminal stenosis. C3-4: Minimal anterior endplate osteophytes and minimal endplateirregularity. Small left uncovertebral spurs and a small disc osteophytecomplex eccentric to the left. Moderate left facet arthropathy with mildfacet joint widening suggesting hypermobility. Mild right facetarthropathy. Mild posterior ligamentous hypertrophy. Moderate spinalstenosis. Mild left and moderate right foraminal stenosis. C4-5: Small anterior endplate osteophytes. Moderate disc space heightloss and endplate irregularity. Small left larger than rightuncovertebral spurs and a small symmetric disc osteophyte complex.Minimal bilateral facet arthropathy. Moderate spinal stenosis.Moderate-severe bilateral foraminal stenosis. C5-6: Mild disc space height loss and moderate endplate irregularity.Small anterior endplate osteophytes. Small left and moderate rightuncovertebral spurs with a small symmetric disc osteophyte complex.Moderate spinal stenosis. Severe left and moderate-severe right foraminalstenosis. C6-7: Moderate disc space height loss and endplate irregularity with smallanterior endplate osteophytes. Minimal symmetric disc osteophyte complex.No significant spinal or foraminal stenosis. C7-T1: Mild disc space height loss and moderate endplate irregularity.Small bilateral uncovertebral spurs and a very small symmetric discosteophyte complex. Mild right and minimal left facet arthropathy. Nospinal stenosis. Mild-moderate bilateral foraminal stenosis. IMPRESSION: Multilevel degenerative changes. There are moderate spinal stenoses atC3-4, C4- 5, C5-6, and multilevel high-grade foraminal stenoses. -------- FINAL REPORT -------- Dictated By: Reji Arizmendi Dictated Date: 05/25/2025 12:37 ET Assigned Physician: Reji Arizmendi Reviewed and Electronically Signed By: Reji Arizmendi Signed Date: 05/25/2025 12:57 ET Workstation ID: [id number] Transcribed By: Self Edit Transcribed Date: 05/25/2025 12:37 ET Francisco VIZCARRA IMG MRI PROCEDURES Final Resul t * ECG 12 lead (04/04/2025 9:25 AM EDT) Ventricular Rate ECG 48 BPM GEMUSE Atrial Rate 48 BPM GEMUSE P-R Interval 190 ms GEMUSE QRS Duration 96 ms GEMUSE Q-T Interval 464 ms GEMUSE QTc 414 ms GEMUSE P Wave [place] 20 degrees GEMUSE R [place] -34 degrees GEMUSE T [place] 6 degrees GEMUSE ECG Interpretation Sinus bradycardia Left axis deviation Voltage criteria for left ventricular hypertrophy Abnormal ECG When compared with ECG of 31-MAY-2024 10:54, No significant change was found Confirmed by PHILIP GUERRERO ([id number]) on 04/04/2025 10:15:41 AM GEMUSE 04/04/2025 9:25 AM EDT 04/04/2025 10:15 AM EDT Philip Guerrero MD ECG ORDERABLES Final Result GEMUSE * Lipid panel with reflex to direct LDL (11/17/2024 11:17 AM EDT) Cholesterol 174 0 - 200 mg/dL LAB CHEMISTRY METHOD 11/17/2024 4:30 PM EDT [facility] Triglycerides 116 0 - 150 mg/dL LAB CHEMISTRY METHOD 11/17/2024 4:30 PM EDT [facility] HDL 59 >=40 mg/dL LAB CHEMISTRY METHOD 11/17/2024 4:30 PM EDT [facility] LDL Calculated 92 0 - 100 mg/dL LAB CHEMISTRY METHOD 11/17/2024 4:30 PM EDT [facility] VLDL Cholesterol Jarred 23.2 mg/dL LAB CHEMISTRY METHOD 11/17/2024 4:30 PM EDT [facility] Non HDL Chol. (LDL+VLDL) 115 <145 mg/dL LAB CHEMISTRY METHOD 11/17/2024 4:30 PM EDT [facility] Chol/HDL Ratio 2.9 0.0 - 4.4 LAB CHEMISTRY METHOD 11/17/2024 4:30 PM EDT [facility] Blood Venous blood specimen / Unknown Venipuncture / Unknown 11/17/2024 11:17 AM EDT 11/17/2024 11:17 AM EDT Saravanan VIZCARRA LAB BLOOD ORDERABLES Sanaz l Result [facility] [address] [place] [address], * Comprehensive metabolic panel (11/17/2024 11:17 AM EDT) Sodium 139 133 - 145 mmol/L LAB CHEMISTRY METHOD 11/17/2024 4:30 PM [facility] Potassium 4.6 3.5 - 5.5 mmol/L LAB CHEMISTRY METHOD 11/17/2024 4:30 PM [facility] Chloride 105 96 - 110 mmol/L LAB CHEMISTRY METHOD 11/17/2024 4:30 PM [facility] CO2 26 21 - 32 mmol/L LAB CHEMISTRY METHOD 11/17/2024 4:30 PM [facility] Anion Gap 8 3 - 11 LAB CHEMISTRY METHOD 11/17/2024 4:30 PM [facility] Glucose 83 70 - 100 mg/dL LAB CHEMISTRY METHOD 11/17/2024 4:30 PM [facility] BUN 19 5 - 25 mg/dL LAB CHEMISTRY METHOD 11/17/2024 4:30 PM EDT [facility] Creatinine 1.21 0.70 - 1.30 mg/dL LAB CHEMISTRY METHOD 11/17/2024 4:30 PM [facility] eGFR 62 >=60 mL/min/1. 73m2 LAB CHEMISTRY METHOD 11/17/2024 4:30 PM [facility] Comment:Calculation based on the Chronic Kidney Disease Epidemiology Collaboration (CKD-EPI) equation refit without adjustment for race. BUN/Creatinine Ratio 15.7 LAB CHEMISTRY METHOD 11/17/2024 4:30 PM [facility] Calcium 9.1 8.5 - 10.5 mg/dL LAB CHEMISTRY METHOD 11/17/2024 4:30 PM [facility] AST (SGOT) 19 10 - 42 unit/L LAB CHEMISTRY METHOD 11/17/2024 4:30 PM [facility] ALT (SGPT) 35 10 - 60 unit/L LAB CHEMISTRY METHOD 11/17/2024 4:30 PM [facility] Alkaline Phosphatase 93 42 - 121 unit/L LAB CHEMISTRY METHOD 11/17/2024 4:30 PM [facility] Total Protein 7.0 6.0 - 8.0 g/dL LAB CHEMISTRY METHOD 11/17/2024 4:30 PM [facility] Albumin 4.0 3.2 - 5.0 g/dL LAB CHEMISTRY METHOD 11/17/2024 4:30 PM [facility] Total Bilirubin 0.5 0.0 - 1.4 mg/dL LAB CHEMISTRY METHOD 11/17/2024 4:30 PM [facility] Blood Venous blood specimen / Unknown Venipuncture / Unknown 11/17/2024 11:17 AM EDT 11/17/2024 11:17 AM EDT Saravanan VIZCARRA LAB BLOOD ORDERABLES [place] Result [facility] [address] [place] [address], * Depression Screening (07/16/2023) Depression Screening abstracted Historical Provider HEALTH MAINTENANCE Final Result * Hepatitis C Screening (04/05/2013) Hepatitis C Screening abstracted Historical Provider MD HEALTH MAINTENANCE Final Result from Last 3 Months or Most Recently Relevant to Health Maintenance Insurance MEDICARE [facility] Advance Directives * Full Code - Default (Latest Code Status on File) Date Activated Date Inactivated Comments 06/08/2024 6:08 AM 06/08/2024 3:24 PM This is or chasidy is used when code status has not been discussed with the patient, or code status is otherwise unknown/unconfirmed To update the patient's code status, place a code status order. Do not modify or discontinue any currently active code status orders. Care Teams Svp Digital Sales Relationship Specialty Start Date End Date Saravanan Perdue PA [address] [place] [address] PCP - General Internal Medicine 05/24/24
== END 2025-05-27 10:22 | disposition home or self-care (01) ==
LOC: HO.HPHYS 09:39
PROVIDERS: PCP Physician Assistant Medical; Visit Provider Physician Assistant
DX: M54.50 Low back pain, unspecified (principal); G89.29 Other chronic pain; M54.2 Cervicalgia
CPT/HCPCS: 99213

== ENCOUNTER → 2025-05-27 09:39 | Outpatient (BNVA) | payer MEDICARE, OTHER, SELFPAY | PROVIDERS: PCP Physician Assistant Medical; Visit Provider Physician Assistant | DX: M54.2 Cervicalgia (principal); G89.29 Other chronic pain; M54.50 Low back pain, unspecified; Z87.891 Personal history of nicotine dependence | CPT/HCPCS: 99212 ==